=== PATIENT | male | born 1955 | race Caucasian/White ===

== ENCOUNTER 2021-09-10 00:39 | Observation (INO) | payer MEDICARE, OTHER ==
[2021-09-10] MEDS ORDERED: Ondansetron PF 4 MG/2 ML Vial ONE (00:59)
[2021-09-10] MEDS ORDERED: Aspirin Chewable 81 MG TAB ONE (00:59)
[2021-09-10] MEDS ORDERED: Nitroglycerin 0.4 MG TAB 1 EACH ONE (00:59)
[2021-09-10 01:15] LABS: #Basophils 0.1 thou/uL (0.0-0.2); #Eosinphils 0.1 thou/uL (0.0-0.7); #Lymphocytes 2.1 thou/uL (1.20-3.40); #Monocytes 0.7 thou/uL (0.11-0.59); #Neutrophils 8.1 thou/uL (1.40-6.50); %Basophils 0.8 % (0.0-1.0); %Eosinophils 0.5 % (0.0-10.0); %Lymphocytes 19.2 % (21.0-51.0); %Monocytes 6.3 % (0.0-10.0); %Neutrophils 73.2 % (42.0-75.0); Hemoglobin 15.6 g/dL (14.0-18.0); Mean Corpuscular Hemoglobin 32.3 pg (27.0-31.0); Mean Corpuscular Volume 94.9 fL (78.0-98.0); Mean Platelet Volume 7.4 fL (7.4-10.4); Platelet Count 321 thou/uL (130-400); RBC Distribution Width 11.5 % (11.5-14.5); Red Blood Cell (RBC) Count 4.84 mill/uL (4.70-6.10); White Blood Cell (WBC) Count 11.1 thou/uL (4.8-10.8)
[2021-09-10] MEDS ORDERED: Morphine 4 MG/ML VIAL ONE (01:25)
[2021-09-10 01:36] LABS: ALT (SGPT) 33 U/L (8-55); AST (SGOT) 23 U/L (5-34); Albumin 4.7 g/dL (3.4-4.8); Alkaline Phosphatase 89 U/L (40-110); Anion Gap 13 mmol/L (10-20); BUN (Urea Nitrogen) 12 mg/dL (8.4-25.7); Bilirubin, Total 0.4 mg/dL (0.2-1.2); CK (CPK) 128 U/L (30-200); Calc. Creatinine Clearance 0 mL/min (70-130); Calcium 10.1 mg/dL (7.8-10.44); Carbon Dioxide 29 mmol/L (23-31); Chloride 103 mmol/L (98-107); Glucose 139 mg/dL (80-115); Lipase 23 U/L (8-78); Potassium 4.1 mmol/L (3.5-5.1); Protein, Total 7.7 g/dL (5.8-8.1); Sodium 141 mmol/L (136-145)
[2021-09-10] MEDS ORDERED: Sucralfate 1 GM/10 ML UDCUP ONE ×2 (01:56→01:57)
[2021-09-10] MEDS ORDERED: Acetaminophen 325 MG TAB PO PRN (04:13)
[2021-09-10] MEDS ORDERED: Ondansetron PF 4 MG/2 ML Vial IVP PRN (04:13)
[2021-09-10] MEDS ORDERED: Nitroglycerin 0.4 MG TAB (25 Tab Bottle) SL PRN (04:14)
[2021-09-10] MEDS ORDERED: Fentanyl 100 MCG/2 ML VIAL SLOW IVP SCH (05:30)
[2021-09-10 06:07] LABS: Troponin I Less than 0.010 ng/mL (< 0.028)
[2021-09-10] MEDS ORDERED: Morphine 2 MG/ML VIAL SLOW IVP PRN (07:10)
[2021-09-10 07:44] LABS: Troponin I Less than 0.010 ng/mL (< 0.028)
[2021-09-10 08:11] VITALS: BMI 29.7
[2021-09-10] MEDS ORDERED: Enoxaparin Sodium 40 MG/0.4 ML SYRINGE SC SCH (09:00)
[2021-09-10] MEDS ORDERED: Regadenoson 0.4 MG/5 ML SYRINGE ONE (09:53)
[2021-09-10] MEDS ORDERED: Iopamidol-370 76% 500 ML 1 ML ONE (11:18)
[2021-09-10 14:16] VITALS: BP 138/69; TEMP 98.1
== END 2021-09-10 15:30 | disposition home or self-care (01) ==
LOC: ERS 00:39 → NEURO 04:04
PROVIDERS: ADMIT Internal Medicine; ATTEND Internal Medicine
DX: R07.9 Chest pain, unspecified (principal); I10 Essential (primary) hypertension; I44.0 Atrioventricular block, first degree; F17.290 Nicotine dependence, other tobacco product, uncomplicated; K44.9 Diaphragmatic hernia without obstruction or gangrene; E27.8 Other specified disorders of adrenal gland; Z79.899 Other long term (current) drug therapy; Z88.0 Allergy status to penicillin; Z88.5 Allergy status to narcotic agent
CPT/HCPCS: 36415; 71045; 74177; 78452; 80053; 82550; 83690; 84484; 85025; 93005; 93017; 96372; 96374; 96375; A9500; G0378; J1650; J2270; J2405; J2785; Q9967